=== PATIENT | female | born 1990 | race American Indian/Alaskan Native ===

== ENCOUNTER 2020-09-12 11:52 | Emergency (ER) | payer BC ==
[2020-09-12 12:11] VITALS: BP 121/75
--- NOTE | 2020-09-12 12:57 | Emergency Department Report ---
ED General Adult HPI - General Chief complaint: Chest Pain Stated complaint: CHEST PAIN, LT ARM BACK PAIN Time Seen by Provider: 09/12/20 12:19 Source: patient Mode of arrival: Ambulatory Limitations: No Limitations - History of Present Illness Initial comments: Patient is a 30-year-old female presents emergency room with complaints of chest pain and upper back pain that began a week ago. She states her pain is worse with movement. She states her chest pain has resolved but she continues to have upper back pain. She denies any fall or injury. She denies any fever, nausea, vomiting, diarrhea, diaphoresis, shortness of breath, pleuritic chest pain, leg swelling. She denies any recent travel or recent surgery. No past medical history. No allergies to medications. She states that she is currently on her menstrual cycle. She states that she is a non-smoker. She states that her only family cardiac history is that her grandparents have heart disease at an older age. - Related Data Previous Rx's Medication Instructions Recorded Last Taken Type Naproxen 375 mg PO BID PRN #20 tablet 09/12/20 Unknown Rx methOCARBAMOL [Robaxin TAB] 500 mg PO BID PRN #20 tab 09/12/20 Unknown Rx Allergies Allergy/AdvReac Type Severity Reaction Status Date / Time No Known Allergies Allergy Unverified 09/12/20 12:08 ED Review of Systems ROS: Stated complaint: CHEST PAIN, LT ARM BACK PAIN Other details as noted in HPI Comment: All other systems reviewed and negative ED Past Medical Hx - Past Medical History Previous Medical History?: No - Surgical History Past Surgical History?: Yes Additional Surgical History: left knee - Medications Home Medications: Home Medications Medication Instructions Recorded Confirmed Last Taken Type Naproxen 375 mg PO BID PRN #20 tablet 09/12/20 Unknown Rx methOCARBAMOL [Robaxin TAB] 500 mg PO BID PRN #20 tab 09/12/20 Unknown Rx ED Physical Exam - General Limitations: No Limitations General appearance: alert, in no apparent distress - Head Head exam: Present: atraumatic, normocephalic - Eye Eye exam: Present: normal appearance - ENT ENT exam: Present: mucous membranes moist - Neck Neck exam: Present: normal inspection, full ROM. Absent: tenderness, meningismus - Respiratory Respiratory exam: Present: normal lung sounds bilaterally, chest wall tenderness (reproducible left anterior chest wall ttp, no crepitus, no deformities). Absent: respiratory distress, wheezes, rales, rhonchi, stridor, accessory muscle use, decreased breath sounds, prolonged expiratory - Cardiovascular Cardiovascular Exam: Present: regular rate, normal rhythm, normal heart sounds. Absent: systolic murmur, diastolic murmur, rubs, gallop - Back Exam Back exam: Present: normal inspection, full ROM, paraspinal tenderness (left sided T-spine paraspinal muscular ttp, no midline C-spine, T-spine or L-spine ttp, no step offs, no deformities). Absent: vertebral tenderness - Neurological Exam Neurological exam: Present: alert, oriented X3, normal gait - Psychiatric Psychiatric exam: Present: normal affect, normal mood - Skin Skin exam: Present: warm, dry, intact ED Course Vital Signs 09/12/20 09/12/20 12:10 13:13 Temperature 98.2 F Pulse Rate 98 H 92 H Respiratory 18 Rate Blood Pressure 121/75 O2 Sat by Pulse 100 100 Oximetry ED Medical Decision Making - Lab Data Vital Signs 09/12/20 09/12/20 12:10 13:13 Temperature 98.2 F Pulse Rate 98 H 92 H Respiratory 18 Rate Blood Pressure 121/75 O2 Sat by Pulse 100 100 Oximetry - EKG Data EKG shows normal: sinus rhythm, axis, intervals, QRS complexes, ST-T waves Rate: normal - Radiology Data Radiology results: report reviewed Ordering Physician: KATIA BOURNE Date of Service: 09/12/20 Procedure(s): XR chest routine 2V Accession Number(s): [id number] cc: KATIA BOURNE Fluoro Time In Minutes: CHEST 2 VIEWS INDICATION / CLINICAL INFORMATION: Chest pain. COMPARISON: None available. FINDINGS: SUPPORT DEVICES: None. HEART / MEDIASTINUM: The heart size and pulmonary vasculature are normal. The aorta is normal in caliber. LUNGS / PLEURA: There are nipple shadows overlying both lower lung zones on the PA view. No significant parenchymal or pleural abnormality. No pneumothorax. ADDITIONAL FINDINGS: There is mild thoracolumbar scoliosis. IMPRESSION: No acute findings. Signer Name: Az Danielle MD Signed: 09/12/2020 12:58 PM Workstation Name: [id number] Transcribed By: RT Dictated By: Az Danielle MD Electronically Authenticated By: Az Danielle MD Signed Date/Time: 09/12/201257 DD/ 55 TD/TT: Print - Medical Decision Making Patient is a 30-year-old female presents emergency room with complaints of chest pain and upper back pain that began a week ago. She states her pain is worse with movement. She states her chest pain has resolved but she continues to have upper back pain. She denies any fall or injury. She denies any fever, nausea, vomiting, diarrhea, diaphoresis, shortness of breath, pleuritic chest pain, leg swelling. She denies any recent travel or recent surgery. No past medical history. No allergies to medications. She states that she is currently on her menstrual cycle. She states that she is a non-smoker. She states that her only family cardiac history is that her grandparents have heart disease at an older age. Vitals are normal. On exam:reproducible left anterior chest wall ttp, no crepitus, no deformities, left sided T-spine paraspinal muscular ttp, no midline C-spine, T-spine or L-spine ttp, no step offs, no deformities. Examination appears to be musculoskeletal in origin, she has had no trauma, could be related to costochondritis versus muscle strain. EKG is within normal limits. Chest x- ray IMPRESSION: No acute findings. PERC criteria negative for PE, PE unlikely. Patient given prescription for medication. Advised patient Please take medication as prescribed. Follow-up with a primary care doctor for reexamination. Return to emergency room immediately for any new or worsening symptoms. Discuss strict return precautions with patient. Critical care attestation.: If time is entered above; I have spent that time in minutes in the direct care of this critically ill patient, excluding procedure time. ED Disposition Clinical Impression: Upper back pain Chest pain Qualifiers: Chest pain type: unspecified Qualified Code(s): R07.9 - Chest pain, unspecified Scoliosis of thoracolumbar spine Qualifiers: Scoliosis type: unspecified scoliosis Qualified Code(s): M41.9 - Scoliosis, unspecified Disposition: DC-01 TO HOME OR SELFCARE Is pt being admited?: No Does the pt Need Aspirin: No Condition: Stable Instructions: Costochondritis, [id number], Nonspecific Chest Pain, Adult Additional Instructions: Please take medication as prescribed. Follow-up with a primary care doctor for reexamination. Return to emergency room immediately for any new or worsening symptoms. Prescriptions: Naproxen 375 mg PO BID PRN #20 tablet PRN Reason: pain methOCARBAMOL [Robaxin TAB] 500 mg PO BID PRN #20 tab PRN Reason: muscle spasm/pain Referrals: PRIMARY CARE, [Primary Care Provider] - 2-3 Days Time of Disposition: 13:06 Print Language: LAO
--- NOTE | 2020-09-12 13:02 | XRay Report ---
CHEST 2 VIEWS INDICATION / CLINICAL INFORMATION: Chest pain. COMPARISON: None available. FINDINGS: SUPPORT DEVICES: None. HEART / MEDIASTINUM: The heart size and pulmonary vasculature are normal. The aorta is normal in galileo tutu. LUNGS / PLEURA: There are nipple shadows overlying both lower lung zones on the PA view. No significa nt parenchymal or pleural abnormality. No pneumothorax. ADDITIONAL FINDINGS: There is mild thoracolumbar scoliosis. IMPRESSION: No acute findings. Signer Name: Az Danielle MD Signed: 09/12/2020 12:58 PM Workstation Name: [id number]
--- NOTE | 2020-09-14 17:53 | Electrocardiograph Report ---
[facility] Test Date: 2020-09-12 Test Time: 12:15:47 Pat Name: RHODA HEAD Department: Room: Gender: F Unit Nurse: GEE : 1990 Requested By: ATIF LUCIO Order Number: [id number] Reading MD: Randi Xiao Measurements Intervals [place] Rate: 95 P: 68 SD: 165 QRS: 70 QRSD: 98 T: 51 QT: 367 QTc: 460 Interpretive Statements Sinus rhythm No previous ECG available for comparison Electronically Signed On 09-14-2020 17:52:41 EDT by Randi Xiao
== END 2020-09-12 13:19 | disposition home or self-care (01) ==
LOC: ED 11:52
DX: M41.9 Scoliosis, unspecified (principal); M54.6 Pain in thoracic spine; R07.9 Chest pain, unspecified; Z79.899 Other long term (current) drug therapy; Z98.890 Other specified postprocedural states
CPT/HCPCS: 71046; 93005; 99283